=== PATIENT | male | born 1990 | race Caucasian/White ===

== ENCOUNTER 2019-10-01 22:32 | Emergency (ER) | payer BC ==
[~2019-10-01] VITALS: Ht 177.8 cm; Wt 72.6 kg
[2019-10-01 22:36] VITALS: BP_SYST 135
--- NOTE | 2019-10-01 22:36 | NUR ---
Patient triaged and placed in waiting room. VSS and patient appears in no acute distress at this time. Accompanied by MOTHER, awaiting available bed, and MD notified of need for MSE.
--- NOTE | 2019-10-02 01:29 | NUR ---
Pt c/o pain to right elbow since yesterday afternoon. Pt states that he doesn't remember what happened. Mother present and states that she found him lying on the cement on the side of the front yard near a scooter. He was complaining of right elbow pain and unable to move elbow. Pt AAOX4, denies hitting head, no obvious injury or deformity to right elbow. Abrasion noted to right shoulder. Pt unable to bend or extend right arm at elbow r/t pain. Able to move RHA about wrist and wiggle fingers without difficulty. Addendum: 10/02/19 at 0606 by SD[facility] +swelling to Right elbow extending to upper RFA. Strong palpable distal pulses.
--- NOTE | 2019-10-02 01:29 | NUR ---
Patient to ER bed 5 to gown for evaluation. Side rails up. Report given to ANNIKA BILLINGSLEY.
--- NOTE | 2019-10-02 01:30 | NUR ---
Dr. Herbert at bedside.
[2019-10-02] MEDS ORDERED: KETOROLAC TROMETHAMINE 60 MG/2 ML VIAL IM ONE (01:45)
--- NOTE | 2019-10-02 03:10 | NUR ---
Lab at bedside.
[2019-10-02 03:30] LABS: BASOPHILS # (AUTO) 0.1 K/uL (0.0-0.2); BASOPHILS % (AUTO) 0.5 % (0.0-2.0); EOSINOPHILS % (AUTO) 0.2 % (0.0-4.0); HEMATOCRIT 46.7 % (36-54); HEMOGLOBIN 15.9 g/dL (14.0-18.0); LYMPHOCYTES # (AUTO) 1.7 K/uL (1.0-5.5); LYMPHOCYTES % (AUTO) 9.9 % (20.5-51.5); MEAN CORPUSCULAR HEMOGLOBIN 31 pg (27-31); MEAN CORPUSCULAR HGB CONC 34 % (32-36); MEAN CORPUSCULAR VOLUME 93 fL (79.0-98.0); MONOCYTES # (AUTO) 1.5 K/uL (0.0-1.0); MONOCYTES % (AUTO) 8.5 % (1.7-9.3); NEUTROPHILS # (AUTO) 14.3 K/uL (1.8-7.7); NEUTROPHILS % (AUTO) 80.9 % (40.0-70.0); PLATELET COUNT (AUTO) 302 K/uL (130-430); RED BLOOD CELL COUNT(AUTO) 5.05 MIL/uL (4.2-6.2); RED CELL DISTRIBUTION WIDTH 13.4 % (9.0-15.0); WHITE BLOOD COUNT (AUTO) 17.6 K/uL (4.8-10.8)
[2019-10-02 03:46] LABS: ANION GAP 10 (5-15); CALCIUM 8.8 mg/dL (8.4-11.0); CHLORIDE 101 mmol/L (98-107); CREATININE 0.88 mg/dL (0.55-1.30); GLUCOSE 112 mg/dL (70-99); POTASSIUM 3.5 mmol/L (3.5-5.1); SODIUM SERUM 138 mmol/L (136-145); UREA NITROGEN, BLOOD 13 mg/dL (8-21)
[2019-10-02 03:48] LABS: INR 1.1 (0.80-1.20)
[2019-10-02 03:53] LABS: ALANINE AMINOTRANSFERASE 20 U/L (12-78); ALBUMIN 4.1 g/dL (3.4-4.8); ASPARTATE AMINOTRANSFERASE 26 U/L (10-37)
[2019-10-02 03:55] LABS: ALCOHOL, BLOOD < 3 mg/dL (<10); GFR AFRICAN AMERICAN 134 mL/min (>90)
--- NOTE | 2019-10-02 04:00 | NUR ---
Pt resting quietly with eyes closed, NAD. Family members at bedside.
--- NOTE | 2019-10-02 05:45 | NUR ---
Right shoulder immobilizer applied, nonconstrictively. Pt verbalizes adequate support. Cap refil < 2 sec to nail beds.
[2019-10-02 06:00] VITALS: BP_SYST 122
--- NOTE | 2019-10-02 06:00 | NUR ---
Patient given written and verbal discharge instructions and verbalizes understanding. ER MD discussed with patient the results and treatment provided. Patient in stable condition. ID arm band removed. Rx of Motrin given. Patient educated on pain management and to follow up with PMD. Pain Scale 2/10. Opportunity for questions provided and answered. Medication side effect fact sheet provided.
--- NOTE | 2019-10-02 08:52 | NUR ---
Called patient x 1 to inform about X-ray radiology report, unable to reach, awaiting for call back
--- NOTE | 2019-10-02 10:04 | NUR ---
Called pt x 2 to inform about radiology report, no answer, Left voice mail to call back.
== END 2019-10-02 06:00 | disposition home or self-care (01) ==
LOC: SED 22:32
DX: S46.811A Strain of other muscles, fascia and tendons at shoulder and upper arm level, right arm, initial encounter (principal); V87.8XXA Person injured in other specified noncollision transport accidents involving motor vehicle (traffic), initial encounter; Y93.89 Activity, other specified; Y92.89 Other specified places as the place of occurrence of the external cause; Y99.8 Other external cause status
CPT/HCPCS: 36415; 73080; 73200; 80053; 85025; 85610; 96372; 99284; G0482; J1885

== ENCOUNTER 2019-10-09 16:44 | Emergency (ER) | payer BC ==
[~2019-10-09] VITALS: Ht 175.3 cm; Wt 74.8 kg
[2019-10-09 17:00] VITALS: BP_SYST 114
--- NOTE | 2019-10-09 17:06 | NUR ---
Patient triaged and placed in waiting room. VSS and patient appears in no acute distress at this time. Accompanied by Aunt, awaiting available bed, and MD notified of need for MSE.
--- NOTE | 2019-10-09 17:29 | NUR ---
TPatient to ER bed 02 to gown for evaluation. Side rails up. Report given to ANALILIA DAVIS
--- NOTE | 2019-10-09 17:30 | NUR ---
Patient presented to ER C/O unable to extend right elbow. Patient A&Ox4, ambulatory to ER, cap refill <3, greenish discoloration/bruising & swelling at right elbow joint, right arm in sling,pain mild, denies N/V/D. Patient states he was seen [facility] ER 10/02/19 for right arm injury.
[2019-10-09 17:55] VITALS: BP_SYST 116
--- NOTE | 2019-10-09 17:55 | NUR ---
Patient given written and verbal discharge instructions and verbalizes understanding. ER MD discussed with patient the results and treatment provided. Patient in stable condition. ID arm band removed. No Rx given. Patient educated on pain management and to follow up with PMD. Pain Scale 2/10 tolerable for patient. Opportunity for questions provided and answered.
== END 2019-10-09 17:55 | disposition home or self-care (01) ==
LOC: SED 16:44
DX: S52.121A Displaced fracture of head of right radius, initial encounter for closed fracture (principal); W18.39XA Other fall on same level, initial encounter; Y93.89 Activity, other specified; Y92.89 Other specified places as the place of occurrence of the external cause; Y99.8 Other external cause status
CPT/HCPCS: 99283

== ENCOUNTER 2021-02-02 15:52 | Emergency (ER) | payer BC ==
[~2021-02-02] VITALS: Ht 180.3 cm; Wt 79.4 kg
[2021-02-02 15:52] VITALS: BP_SYST 137
[2021-02-02] MEDS ORDERED: LIDOCAINE 1% 10 MG/ML, 20 ML MDV INJ ONE (16:45)
[2021-02-02] MEDS ORDERED: LIDOCAINE 1%, 20 ML MDV 20 ML ONE (16:45)
[2021-02-02] MEDS ORDERED: BACITRACIN 1 GM OINT TP ONE (16:46)
[2021-02-02] MEDS ORDERED: AMOX-423 PO (18:00)
[2021-02-02 18:15] VITALS: BP_SYST 132
== END 2021-02-02 18:16 | disposition home or self-care (01) ==
LOC: SED 15:52
DX: S61.012A Laceration without foreign body of left thumb without damage to nail, initial encounter (principal); W26.8XXA Contact with other sharp object(s), not elsewhere classified, initial encounter; Y93.89 Activity, other specified; Y92.89 Other specified places as the place of occurrence of the external cause; Y99.8 Other external cause status
CPT/HCPCS: 12001; 99283; J2001

== ENCOUNTER 2021-02-04 10:57 | Emergency (ER) | payer BC ==
[~2021-02-04] VITALS: Ht 175.3 cm; Wt 62.6 kg
[~2021-02-04 10:57] MED LIST: AMOX-423 PO
[2021-02-04 11:05] VITALS: BP_SYST 115
[2021-02-04] MEDS ORDERED: BACITRACIN 1 GM OINT TP ONE (11:14)
[2021-02-04 11:25] VITALS: BP_SYST 115
== END 2021-02-04 11:25 | disposition home or self-care (01) ==
LOC: SED 10:57
DX: Z48.02 Encounter for removal of sutures (principal)
CPT/HCPCS: 99282

== ENCOUNTER → 2021-05-01 | Emergency (ER) | payer BC ==
[~2021-05-01] VITALS: Ht 177.8 cm; Wt 74.8 kg
[~2021-05-01] MED LIST changes: +CEPH500C2 PO; +TRAM50TA2 PO
[2021-05-01 23:17] VITALS: BP_SYST 156
--- NOTE | 2021-05-02 01:55 | NUR ---
Patient left without being seen.
== END | disposition left against medical advice (07) ==
LOC: SED 23:02
DX: S80.211A Abrasion, right knee, initial encounter (principal); S80.212A Abrasion, left knee, initial encounter; X58.XXXA Exposure to other specified factors, initial encounter; Y93.89 Activity, other specified; Y92.89 Other specified places as the place of occurrence of the external cause; Y99.8 Other external cause status; Z53.21 Procedure and treatment not carried out due to patient leaving prior to being seen by health care provider

== ENCOUNTER 2021-05-02 19:31 | Emergency (ER) | payer OTHER, BC ==
[~2021-05-02] VITALS: Ht 172.7 cm; Wt 77.1 kg
[~2021-05-02 19:31] MED LIST changes: -CEPH500C2 PO; -TRAM50TA2 PO
[2021-05-02 19:39] VITALS: BP_SYST 135
[2021-05-02] MEDS ORDERED: DIPH-TET-PERTUS Vaccine 0.5 ML VIAL (ADACEL) I.M. ONE (20:15)
[2021-05-02] MEDS ORDERED: TRAM50TA2 PO (21:28)
[2021-05-02] MEDS ORDERED: CEPH500C2 PO (21:28)
[2021-05-02 21:47] VITALS: BP_SYST 126
== END 2021-05-02 21:47 | disposition home or self-care (01) ==
LOC: SED 19:31
DX: S80.12XA Contusion of left lower leg, initial encounter (principal); S80.11XA Contusion of right lower leg, initial encounter; L03.116 Cellulitis of left lower limb; R51.9 Headache, unspecified; Z79.899 Other long term (current) drug therapy; V29.49XA Motorcycle driver injured in collision with other motor vehicles in traffic accident, initial encounter; Y93.89 Activity, other specified; Y92.89 Other specified places as the place of occurrence of the external cause; Y99.8 Other external cause status
CPT/HCPCS: 70450-TC; 73590-TC; 76376; 90715; 99284